=== PATIENT | female | born 1980 | race Caucasian/White ===

== ENCOUNTER 2016-09-20 22:07 | Emergency (ER) | payer OTHER ==
[~2016-09-20] VITALS: Ht 154.9 cm; Wt 57.7 kg
[~2016-09-20 22:07] MED LIST: PRENATAL VITAMIN
[2016-09-20 22:15] VITALS: BP 132/77
[2016-09-20] MEDS ORDERED: MULT1CHW39 PO (22:19)
[2016-09-20] MEDS ORDERED: IBUP200C10 PO (22:19)
== END 2016-09-21 01:45 | disposition left against medical advice (07) ==
LOC: M ED 22:07
DX: Z53.21 Procedure and treatment not carried out due to patient leaving prior to being seen by health care provider (principal); R10.9 Unspecified abdominal pain

== ENCOUNTER 2017-04-11 17:03 | Emergency (ER) | payer OTHER ==
[2017-04-11 18:05] LABS: AMORPHOUS SEDIMENT RFX SMALL (NEGATIVE); KETONE, URINE AUTO RFX NEGATIVE (NEGATIVE); LEUKOCYTE ESTERASE UR AUTO RFX NEGATIVE (NEGATIVE); NITRITE, URINE AUTO RFX NEGATIVE (NEGATIVE); RBC, URINE AUTO RFX TNTC /HPF (0-3); SPECIFIC GRAVITY UR AUTO RFX 1.019 (1.002-1.035); SQUAM EPITHELIAL CELL UR AURFX 0 /HPF (0-6); WBC, URINE AUTO RFX 1 /HPF (0-3)
[2017-04-11 19:05] LABS: BASO % 0.2 % (0.0-1.0); EOS # 0.2 10^3/uL (0.0-0.50); EOS % 1.3 % (0.0-3.0); HEMATOCRIT 38.3 % (36.0-47.0); IMMATURE GRANULOCYTE % 0.4 % (0-3.0); LYMPH # 3.6 10^3/uL (1.5-4.5); LYMPH % 31.5 % (24.0-44.0); MEAN CORPUSCULAR HGB CONC 33.9 g/dl (32.0-36.5); MEAN CORPUSCULAR VOLUME 94.3 fl (80.0-96.0); MONO % 8.3 % (0.0-5.0); NEUTROPHILS # 6.6 10^3/uL (1.8-7.7); NEUTROPHILS % 58.3 % (36.0-66.0); PLATELET COUNT, AUTOMATED 258 10^3/uL (150-450); RED BLOOD COUNT 4.06 10^6/uL (4.00-5.40); RED CELL DISTRIBUTION WIDTH 11.9 % (11.5-14.5); WHITE BLOOD COUNT 11.4 10^3/uL (4.0-10.0)
[2017-04-11 20:01] LABS: ANION GAP 8 MEQ/L (8-16); BLOOD UREA NITROGEN 18 MG/DL (7-18); CALCIUM LEVEL 8.8 MG/DL (8.5-10.1); CARBON DIOXIDE LEVEL 27 MEQ/L (21-32); CHLORIDE LEVEL 105 MEQ/L (98-107); CREATININE FOR GFR 0.69 MG/DL (0.55-1.30); GLOMERULAR FILTRATION RATE > 60.0 (>60); GLUCOSE, FASTING 95 MG/DL (70-100); HCG, SERUM QUANTITATIVE 11277 MIU/ML; POTASSIUM SERUM 4.1 MEQ/L (3.5-5.1); SODIUM LEVEL 140 MEQ/L (136-145)
== END 2017-04-11 21:10 | disposition home or self-care (01) ==
LOC: M ED 17:03
DX: O03.4 Incomplete spontaneous abortion without complication (principal); Z88.2 Allergy status to sulfonamides; Z98.890 Other specified postprocedural states
CPT/HCPCS: 76801

== ENCOUNTER 2017-04-11 22:05 | Emergency (ER) | payer OTHER ==
[2017-04-11 23:44] LABS: BASO % 0.2 % (0.0-1.0); EOS # 0.1 10^3/uL (0.0-0.50); EOS % 0.8 % (0.0-3.0); HEMATOCRIT 35.3 % (36.0-47.0); IMMATURE GRANULOCYTE % 0.3 % (0-3.0); LYMPH # 2.8 10^3/uL (1.5-4.5); LYMPH % 19.4 % (24.0-44.0); MEAN CORPUSCULAR HEMOGLOBIN 32.7 pg (27.0-33.0); MEAN CORPUSCULAR VOLUME 96.2 fl (80.0-96.0); MONO % 7.2 % (0.0-5.0); NEUTROPHILS # 10.3 10^3/uL (1.8-7.7); NEUTROPHILS % 72.1 % (36.0-66.0); PLATELET COUNT, AUTOMATED 215 10^3/uL (150-450); RED BLOOD COUNT 3.67 10^6/uL (4.00-5.40); RED CELL DISTRIBUTION WIDTH 11.9 % (11.5-14.5); WHITE BLOOD COUNT 14.3 10^3/uL (4.0-10.0)
[2017-04-11 23:58] LABS: BEDSIDE GLUCOSE 144 MG/DL (70-105)
[2017-04-12] MEDS: NS 1,000 ML IV (00:15)
[2017-04-12 00:19] LABS: ANION GAP 7 MEQ/L (8-16); BLOOD UREA NITROGEN 16 MG/DL (7-18); CALCIUM LEVEL 8.4 MG/DL (8.5-10.1); CARBON DIOXIDE LEVEL 26 MEQ/L (21-32); CHLORIDE LEVEL 104 MEQ/L (98-107); CREATININE FOR GFR 0.67 MG/DL (0.55-1.30); GLOMERULAR FILTRATION RATE > 60.0 (>60); GLUCOSE, FASTING 152 MG/DL (70-100); POTASSIUM SERUM 3.7 MEQ/L (3.5-5.1); SODIUM LEVEL 137 MEQ/L (136-145)
== END 2017-04-12 01:40 | disposition home or self-care (01) ==
LOC: M ED 04-12 01:40
DX: E86.9 Volume depletion, unspecified (principal); F17.210 Nicotine dependence, cigarettes, uncomplicated; Z88.2 Allergy status to sulfonamides; Z98.890 Other specified postprocedural states
CPT/HCPCS: 80048

== ENCOUNTER → 2017-04-13 | Outpatient (CLI) | payer OTHER ==
[2017-04-13 16:27] LABS: HCG, SERUM QUANTITATIVE 9165 MIU/ML
== END ==
LOC: M LAB 15:25
DX: Z36.89 Encounter for other specified antenatal screening (principal); Z3A.00 Weeks of gestation of pregnancy not specified
CPT/HCPCS: 84702

== ENCOUNTER 2017-04-23 09:18 | Day surgery (SDC) | payer OTHER ==
[2017-04-23] MEDS ORDERED: LIDOCAINE 1% MDV 20ML VIAL SQ (09:30)
[2017-04-23 09:44] LABS: HEMATOCRIT 36.2 % (36.0-47.0); HEMOGLOBIN 11.9 g/dl (12.0-16.0)
[2017-04-23] MEDS: LR 1,000 ML IV (10:15)
[2017-04-23] MEDS: DOXYCYCLINE HYCLATE 100 MG in D5W MINI-BAG PLUS 100 ML IV (10:15)
[2017-04-23] MEDS ORDERED: MIDAZOLAM INJ 2 MG/2 ML VIAL (J2250) As Ordered (10:28)
[2017-04-23] MEDS ORDERED: fentaNYL 100 MCG/2 ML INJECTION (J3010) As Ordered (10:28)
[2017-04-23] MEDS ORDERED: PROPOFOL 200 MG/20 ML VIAL As Ordered (10:29)
[2017-04-23] MEDS ORDERED: KETOROLAC 60 MG/2 ML VIAL (J1885) As Ordered (11:22)
[2017-04-23] MEDS ORDERED: PERCOCET 5MG/325MG TAB PO (11:45)
[2017-04-23] MEDS ORDERED: ONDANSETRON 4MG/2ML VIAL (J2405) IV (11:45)
[2017-04-23] MEDS ORDERED: LR 1,000 ML IV ×2 (11:45)
[2017-04-23] MEDS ORDERED: PHENYLephrine HCL 500 MCG/5 ML (100MCG/ML) SYRINGE (J2370) As Ordered (12:18)
[2017-04-23] MEDS: DOXYCYCLINE HYCLATE 100 MG TAB PO (12:36)
[2017-04-23] MEDS: METHYLERGONOVINE MALEATE 0.2 MG TAB PO (12:36)
[2017-04-23] MEDS: IBUPROFEN 600 MG TAB PO (13:15)
[2017-04-23] MEDS ORDERED: IBUPROFEN 600 MG TAB As Ordered (13:15)
== END 2017-04-23 13:29 | disposition home or self-care (01) ==
LOC: M SDC 09:18
DX: O02.1 Missed abortion (principal); R56.9 Unspecified convulsions; F17.210 Nicotine dependence, cigarettes, uncomplicated; Z88.0 Allergy status to penicillin
CPT/HCPCS: 59820

== ENCOUNTER → 2018-06-13 | Outpatient (CLI) | payer OTHER ==
[~2018-06-13] MED LIST changes: +IBUP200C25 PO; +IBUP80TA PO; +MULT200T7 PO; +PERC5TAB12 PO; +TYLE325T5 PO
--- NOTE | 2018-06-13 15:38 | REP ---
Obstetric sonography: History: Supervision of for anatomy. Findings: Scanning through the gravid uterus demonstrates a viable single intrauterine gestation in a transverse, head to the maternal left lie. motion is observed and heart rate is recorded at 160 beats per minute. A posterior fundal grade 0 placenta is seen without evidence of previa or abruption. Amniotic fluid is subjectively normal. Closed cervical length is 3.6 cm. No extrauterine abnormalities observed. A single artery two-vessel umbilical cord is noted. The lateral ventricles are measuring at the upper range of normal in size, 10.2 mm. No other abnormality is noted. The following anatomic structures are identified and felt to be unremarkable: cranium, cavum, cerebellum and posterior fossa, face and profile, lungs, four-chamber heart with left ventricular outflow tract view, diaphragm, left-sided stomach, abdominal wall cord insertion, kidneys and bladder, upper and lower extremities. The spine and right ventricular cardiac outflow tract views were less than optimally seen due to position. Biometry chart: BPD 4.4 cm = 19 weeks 2 days Head circumference 16.4 cm = 19 weeks 1 day Abdominal circumference 13.7 cm = 19 weeks 1 day Femur length 2.9 cm = 18 weeks 6 days Humeral length 2.7 cm = 18 weeks 5 days HC/AC ratio normal 1.20. Cephalic index normal 0.74. Estimated weight 272 grams, 0 pounds 9 ounces, 72nd percentile for 18 weeks 3 days. Impression: Viable single intrauterine gestation at the 19 weeks 0 days by today's composite criteria. MADDIE by today's sonography November 07, 2018. A single artery two-vessel umbilical cord is noted. Right ventricular cardiac outflow tract and spine less than optimally seen. Lateral ventricles are borderline in size. Electronically Signed by Jorge Craven MD 06/13/2018 04:50 P
== END ==
LOC: M RAD 13:39
PROVIDERS: ATTEND Obstetrics & Gynecology
DX: Z34.82 Encounter for supervision of other normal pregnancy, second trimester (principal)

== ENCOUNTER → 2018-06-20 | Outpatient (CLI) | payer OTHER | LOC: M SMT 13:46 | PROVIDERS: ATTEND Obstetrics & Gynecology | DX: O09.522 Supervision of elderly multigravida, second trimester (principal); Z3A.00 Weeks of gestation of pregnancy not specified ==

== ENCOUNTER → 2018-09-14 | Outpatient (CLI) | payer OTHER ==
--- NOTE | 2018-09-14 18:19 | REP ---
Obstetric sonography: History: growth study. HIGINIO. 31 weeks. Findings: Scanning through the gravid uterus demonstrates a viable single intrauterine gestation in a cephalic lie. motion is observed and heart rate is recorded at 127 beats per minute. A fundal grade 2 placenta is seen without evidence of previa or abruption. Amniotic fluid is subjectively normal. No extrauterine abnormalities observed. There has been appropriate interval growth. No anomaly is noted. A single artery umbilical cord is seen however. A anatomic survey was not performed today. Biometry chart: BPD 7.9 cm 31-week 6 days head circumference 29.9 cm 33 weeks 1 day abdominal circumference 27.6 cm 31 weeks 5 days femur length 5.6 centimeters 29 weeks 4 days humeral length 5.4 cm 31 weeks 4 days HC/AC ratio normal 1.08, cephalic index normal 0.73, estimated weight 1721 grams, 3 pounds 12 ounces, 33rd percentile for 31 weeks 5 days HIGINIO normal 18.5 cm. SD ratio normal 2.56. Impression: Viable single intrauterine gestation at 31 weeks 4 days by today's composite criteria. Expected gestational age estimate based on prior sonography is 32 weeks 2 days. There has been appropriate interval growth. MADDIE by prior sonography November 07, 2018. Single artery umbilical cord. Electronically Signed by Jorge Craven MD 09/14/2018 06:49 P
== END ==
LOC: M RAD 13:39
PROVIDERS: ATTEND Obstetrics & Gynecology
DX: Z36.89 Encounter for other specified antenatal screening (principal); Z3A.31 31 weeks gestation of pregnancy

== ENCOUNTER → 2018-10-13 | Outpatient (CLI) | payer OTHER ==
--- NOTE | 2018-10-13 15:18 | REP ---
OBSTETRIC SONOGRAPHY: HISTORY: Supervision of . growth study. FINDINGS: Scanning through the gravid uterus demonstrates a viable single intrauterine gestation in a cephalic lie. motion is observed and heart rate is recorded at 133 beats per minute. Placenta is fundal grade 3 without evidence of previa or abruption. Amniotic fluid is subjectively normal. Closed cervical length is 4.0 cm. No extrauterine abnormalities observed. There has been appropriate interval growth. A single artery umbilical cord is seen. No abnormality is observed. The following anatomic structures are identified today and are again felt to be unremarkable: cranium, cavum, lungs, diaphragm, left-sided stomach, kidneys and bladder, spine. Biometry Chart: BPD 9.0 cm = 36 weeks 4 days HL 31.9 cm = 36 weeks 0 days AC 32.2 cm = 36 weeks 1 day FL 6.3 cm = 32 weeks 4 days HL 5.8 cm = 33 weeks 6 days HC/AC ratio normal 0.99 Cephalic index normal 0.81. Estimated weight 2625 grams, 5 pounds 12 ounces, 39th percentile for 35 weeks 6 days. HIGINIO normal 13.6 cm. S/D ratio in the umbilical cord artery by Doppler normal 2.31. IMPRESSION: Viable single intrauterine gestation at 35 weeks 0 days by today's composite sonographic criteria. Expected gestational age estimate based on prior sonography 36 weeks 3 days. MADDIE by prior sonography 11/07/2018. There is appropriate interval growth. Electronically Signed by Jorge Craven MD 10/13/2018 05:36 P
== END ==
LOC: M RAD 11:08
PROVIDERS: ATTEND Obstetrics & Gynecology
DX: O36.8920 Maternal care for other specified fetal problems, second trimester, not applicable or unspecified (principal)

== ENCOUNTER → 2018-10-21 | Outpatient (REF) | payer OTHER | LOC: M LAB REF 13:01 | PROVIDERS: ATTEND Advanced Practice Midwife | DX: O09.523 Supervision of elderly multigravida, third trimester (principal) ==

== ENCOUNTER 2018-11-06 06:36 | Inpatient (IN) | payer OTHER ==
[2018-11-06] VITALS (9 sets, daily range): BP systolic 107–123; BP diastolic 59–81
[~2018-11-06] VITALS: Ht 154.9 cm; Wt 69.8 kg
[~2018-11-06 06:36] MED LIST changes: +MULTTAB20 PO; +ZOLO25TA PO
[2018-11-06 09:03] LABS: HEMATOCRIT 36.5 % (36.0-47.0); MEAN CORPUSCULAR HEMOGLOBIN 32.3 pg (27.0-33.0); MEAN CORPUSCULAR HGB CONC 32.9 g/dl (32.0-36.5); MEAN CORPUSCULAR VOLUME 98.4 fl (80.0-96.0); PLATELET COUNT, AUTOMATED 247 10^3/uL (150-450); RED BLOOD COUNT 3.71 10^6/uL (4.00-5.40); WHITE BLOOD COUNT 17.4 10^3/uL (4.0-10.0)
[2018-11-06] MEDS ORDERED: LACTATED RINGER'S 1000 ML IV STA (09:12)
[2018-11-06] MEDS ORDERED: AZITHROMYCIN INJ 500MG VIAL (J0456) As Ordered ONE (12:00)
[2018-11-06] MEDS ORDERED: BICITRA 30ML SOLN UDC As Ordered ONE (12:01)
[2018-11-06] MEDS ORDERED: ceFAZolin 2 GM/D5W 50 ML IV BAG (J0690 PER 500MG) As Ordered ONE (12:01)
[2018-11-06] MEDS ORDERED: AZITHROMYCIN INJ 500 MG, VIAL MATE ADAPTER 1 EACH in D5W 250 ML IV ONE (12:15)
[2018-11-06] MEDS ORDERED: BICITRA 30ML SOLN UDC PO ONE (12:15)
[2018-11-06] MEDS ORDERED: OXYTOCIN INJ 10 UNITS/ML VIAL (J2590) As Ordered ONE (12:53)
[2018-11-06] MEDS ORDERED: PHENYLephrine HCL 500 MCG/5 ML (100MCG/ML) SYRINGE (J2370) As Ordered ONE (12:53)
[2018-11-06] MEDS ORDERED: dexameTHASONE 4 MG/ML 1ML VIAL (J1100) As Ordered ONE (12:53)
[2018-11-06] MEDS ORDERED: KETOROLAC 60 MG/2 ML VIAL (J1885) As Ordered ONE (12:53)
[2018-11-06] MEDS ORDERED: ONDANSETRON 4MG/2ML VIAL (J2405) As Ordered ONE (12:53)
[2018-11-06] MEDS ORDERED: MORPHINE PRES-FREE INJ 10 MG/10 ML VIAL (J2274) As Ordered ONE (12:53)
--- NOTE | 2018-11-06 13:46 | HPE ---
DATE OF ADMISSION: 11/06/2018 REASON FOR ADMISSION: Labor. HISTORY OF PRESENT ILLNESS: This patient is a 38-year-old, 5, para 2 who presents at 39 weeks 2 days estimated gestational age by first trimester ultrasound with complaints of contractions. Her course has been remarkable for advanced maternal age, as well as ventriculomegaly and single umbilical artery. She has had serial growth ultrasounds, as well as consultation at the center. Her course was initiated in the first trimester and has been appropriate throughout. She has expressed satisfied parity and desires permanent sterilization throughout her . PAST MEDICAL HISTORY: History of anxiety. PAST SURGICAL HISTORY: She has had two sections and two dilatation and curettage. PAST OBSTETRICAL HISTORY: She is a 5, para 2. She has had two term sections. MEDICATIONS: - Zoloft - vitamins ALLERGIES: BACTRIM and SULFA. SOCIAL HISTORY: She denies any alcohol, tobacco or drug use during the . PHYSICAL EXAMINATION: VITAL SIGNS: Stable. She is afebrile. heart rate is 140s to 150s, moderate variability with contractions noted on tocometer. GENERAL APPEARANCE: Well appearing. No distress. LUNGS: Clear to auscultation bilaterally. CARDIOVASCULAR: Heart regular rate and rhythm. ABDOMEN: Gravid, nontender. CERVICAL EXAM: 1 cm dilated. LABORATORIES: laboratories: Blood type is AB positive, antibody screen is negative. Rubella is equivocal. RPR is nonreactive. Hepatitis surface antigen is negative. HIV is negative. Hepatitis C nonreactive. Chlamydia and gonorrhea screens are negative. She had a Panorama that showed low risk male. Group B streptococcus (GBS) is negative. ASSESSMENT: This patient is a 38-year-old, 5, para 2 at 39 weeks 2 days estimated gestational age here in labor. Reassuring status. History of two prior sections. Satisfied parity with undesired fertility. PLAN: Admit to labor and delivery. CBC, RPR, type and screen. The patient was thoroughly counseled in regards to mode of delivery. She has been counseled on trial of labor after section versus repeat section with risks and benefits of each. She has also been offered alternative measures of contraception, desires for a repeat section with bilateral tubal ligation. Plan is to proceed.
[2018-11-06] MEDS ORDERED: PERCOCET 5MG/325MG TAB PO PRN ×2 (14:15→14:30)
[2018-11-06] MEDS ORDERED: MEASLES,MUMPS,RUBELLA VACCINE INJ (MMR-II) (90707) SC SCH (14:15)
[2018-11-06] MEDS ORDERED: ONDANSETRON 4MG/2ML VIAL (J2405) IV PRN ×2 (14:15→14:30)
[2018-11-06] MEDS ORDERED: RHOGAM 300 MCG (1500 IU) INJ (J2790) IM SCH (14:15)
[2018-11-06] MEDS ORDERED: MOM 30ML SUSPENSION UDC PO PRN (14:15)
[2018-11-06] MEDS ORDERED: OXYTOCIN DRIP 30 UNITS in APPROPRIATE DILUENT 1 EA IV SCH (14:15)
[2018-11-06] MEDS ORDERED: LR 1,000 ML IV SCH ×2 (14:30→15:30)
[2018-11-06] MEDS ORDERED: METOCLOPRAMIDE INJ 10MG/2ML VIAL (J2765) IV PRN (14:30)
[2018-11-06] MEDS ORDERED: fentaNYL 100 MCG/2 ML INJECTION (J3010) IV PRN (14:30)
[2018-11-06] MEDS ORDERED: MEPERIDINE INJ 25 MG/ML VIAL (J2175) IV PRN (14:30)
--- NOTE | 2018-11-06 14:53 | RO ---
DATE OF PROCEDURE: 11/06/2018 PREOPERATIVE DIAGNOSES: 1. Labor. 2. History of two prior sections for repeat. 3. Satisfied parity with undesired fertility. POSTPROCEDURE DIAGNOSES: 1. Labor. 2. History of two prior sections for repeat. 3. Satisfied parity with undesired fertility. PROCEDURES PERFORMED: 1. Repeat section with [place] bilateral tubal ligation. SURGEON: Soo Hatch MD STUDENT ASSISTANT: Prabha Montes DO ANESTHESIA: Spinal. ESTIMATED BLOOD LOSS: 500 mL. INTRAVENOUS FLUIDS: 1 liters of lactated Ringer solution. URINE OUTPUT: 100 mL. OPERATIVE FINDINGS: Live born male infant, scores 8/9, weight was 3200 grams or 7 pounds 1 ounce. PREOPERATIVE ANTIBIOTICS: 2 grams of Ancef, 500 azithromycin. SPECIMENS: Bilateral segments of fallopian tubes. DESCRIPTION OF OPERATION: After informed consent was obtained and written consent was reviewed, the patient was brought to operating room where spinal anesthesia was placed. She was then placed in supine position with a left lateral tilt. Talley catheter was placed and set to gravity. She was then prepped and draped in normal sterile fashion. Time out in the operating room was performed identifying the patient, procedure to be performed. as well as drug allergies. Anesthesia was tested deemed to be adequate. A Pfannenstiel skin incision was then made along the previous skin incision and this was carried down to the underlying rectus fascia. The fascia was scored and incision was extended bilaterally. The fascia was then dissected off the underlying rectus muscles both superiorly and inferiorly. Rectus muscles were in the midline. Peritoneum was entered sharply. Vesicouterine peritoneum was then tented and excised to create a bladder flap. Bladder blade was placed to retract back the bladder. Curvilinear incision was then made in the lower uterine segment. head was brought to the level of the incision atraumatically and was delivered with the aid of a Kiwi vacuum. Suction was released and shoulders were then delivered, along with corpus. Cord was clamped times two and was cut. The was taken over to the warmer with a good cry. Placenta was then delivered grossly intact. The uterus was exteriorized and cleared of all clots and debris. The uterine incision was then closed in two layers using 0 Vicryl, first in a running locking fashion, followed by second layer for imbrication in a running nonlocking fashion. Attention was then turned to the patient's fallopian tubes where bilateral [place] tubal ligation was performed. The right fallopian tube was placed on traction and a window was created in the mesosalpinx. This area was doubly ligated with chromic suture and was excised with good hemostasis noted. In a similar fashion, the left fallopian tube was placed in traction, window was created in the mesosalpinx and this area was doubly ligated using 0 chromic and was excised with good hemostasis noted. The uterus was then returned to the patient's abdomen and surgical sites were inspected and noted to be hemostatic. The anterior peritoneum was then reapproximated with 3-0 Vicryl. The fascia was then closed with 0 Vicryl in a running nonlocking fashion. Subcutaneous tissue was then irrigated and suctioned. Subcutaneous tissue was then closed 3-0 Vicryl. Several subdermal stitches were placed using 3-0 Vicryl and skin was closed with four Monocryl in subcuticular fashion. Incision was then cleaned and dried and was dressed. The patient was then taken to recovery room in stable condition. Counts were correct. Dr. Montes, my rn surgical, played an essential role during surgery. She assisted with tissue identification and retraction, delivery of the , as well as wound closure. YESENIA
[2018-11-06] MEDS ORDERED: OXYTOCIN 30 UNITS IN 0.9% NaCl 500ML IV BAG (J2590) As Ordered ONE (15:00)
[2018-11-06] MEDS ORDERED: PERCOCET PO (15:13)
[2018-11-06] MEDS: PERCOCET 5MG/325MG TAB PO PRN (15:57)
[2018-11-06] MEDS: DOCUSATE SODIUM 100 MG CAP PO SCH (20:30)
[2018-11-06] MEDS: KETOROLAC 30 MG/ML VIAL (J1885) IV SCH (20:31)
[2018-11-06] MEDS: SERTRALINE HCL 25 MG TABLET PO SCH (20:45)
[2018-11-07 02:00] VITALS: BP 111/59
[2018-11-07] MEDS: KETOROLAC 30 MG/ML VIAL (J1885) IV SCH ×2 (02:32→07:41)
[2018-11-07 06:00] VITALS: BP 100/52
[2018-11-07 07:07] LABS: HEMATOCRIT 27.8 % (36.0-47.0); MEAN CORPUSCULAR HEMOGLOBIN 32.9 pg (27.0-33.0); MEAN CORPUSCULAR HGB CONC 33.1 g/dl (32.0-36.5); MEAN CORPUSCULAR VOLUME 99.3 fl (80.0-96.0); PLATELET COUNT, AUTOMATED 212 10^3/uL (150-450); WHITE BLOOD COUNT 17.1 10^3/uL (4.0-10.0)
[2018-11-07 07:09] LABS: HEMOGLOBIN 9.2 g/dl (12.0-15.5)
[2018-11-07] MEDS: DOCUSATE SODIUM 100 MG CAP PO SCH ×2 (07:40→20:12)
[2018-11-07] MEDS: PRENATAL VITAMINS CHEWABLE TABLET PO SCH (07:41)
[2018-11-07 10:05] VITALS: BP 102/52
[2018-11-07 13:56] VITALS: BP 101/61
[2018-11-07] MEDS: IBUPROFEN 800 MG TAB PO SCH ×2 (16:21→23:57)
[2018-11-07] MEDS: PERCOCET 5MG/325MG TAB PO PRN ×2 (17:26→23:57)
[2018-11-07 17:44] VITALS: BP 111/71
[2018-11-07] MEDS: SERTRALINE HCL 25 MG TABLET PO SCH (20:12)
[2018-11-07 22:00] VITALS: BP 106/59
[2018-11-08 02:00] VITALS: BP 108/55
[2018-11-08 06:00] VITALS: BP 103/60
[2018-11-08] MEDS: DOCUSATE SODIUM 100 MG CAP PO SCH (07:33)
[2018-11-08] MEDS: PRENATAL VITAMINS CHEWABLE TABLET PO SCH (07:33)
[2018-11-08] MEDS: IBUPROFEN 800 MG TAB PO SCH (07:33)
--- NOTE | 2018-11-08 08:11 | DSES ---
DATE OF ADMISSION: 11/06/2018 DATE OF DISCHARGE: 11/08/2018 DISCHARGE DIAGNOSIS: Repeat section with bilateral tubal ligation for history of two prior sections with satisfied parity and undesired fertility. PROCEDURES PERFORMED WHILE IN HOSPITAL: 1. Spinal anesthesia. 2. section. 3. [place] bilateral tubal ligation. DISCHARGE CONDITION: Stable. HISTORY AND HOSPITAL COURSE: This patient is a 38-year-old. 4, para 2, who presented in active labor at 39+ weeks. She had expressed her desire for repeat section as well as satisfied parity and desired permanent sterilization. She underwent an uncomplicated section with bilateral [place] tubal ligation productive of a live born male infant. Estimated blood loss was 500 mL. This patient well postoperatively. By postoperative day #2, had met all discharge criteria and was discharged home in stable condition. PHYSICAL EXAMINATION ON DATE OF DISCHARGE: Vital signs were stable. She is afebrile. General Appearance: Well appearing, in no acute distress. Her abdomen was soft and appropriately tender. Fundus firm below umbilicus. Incision was dressed. Extremities: Negative for calf tenderness. DISCHARGE MEDICATIONS: Ibuprofen and Percocet. DISCHARGE INSTRUCTIONS: 1. She was instructed to remain on pelvic rest for 6 weeks. 2. To remove her dressing in 5-7 days. 3. To report severe pain, heavy vaginal bleeding, fever or incisional issues. edited: 11/09/2018 [id number] [id number]
== END 2018-11-08 11:35 | disposition home or self-care (01) | DRG 540 ==
LOC: M LDO 06:36 → M LDI 08:04 → M OBS 15:20
PROVIDERS: ADMIT Obstetrics & Gynecology; ATTEND Obstetrics & Gynecology
PROC: 0UB70ZZ Excision of Bilateral Fallopian Tubes, Open Approach (ICD-10-PCS; 2018-11-06)
PROC: 10D00Z1 Extraction of Products of Conception, Low, Open Approach (ICD-10-PCS; principal; 2018-11-06 13:09)
DX: O34.211 Maternal care for low transverse scar from previous cesarean delivery (principal); O75.82 Onset (spontaneous) of labor after 37 completed weeks of gestation but before 39 completed weeks gestation, with delivery by (planned) cesarean section; Z3A.39 39 weeks gestation of pregnancy; Z37.0 Single live birth; Z30.2 Encounter for sterilization

== ENCOUNTER → 2019-01-29 | Outpatient (CLI) | payer OTHER ==
[~2019-01-29] MED LIST changes: +PERCOCET PO
--- NOTE | 2019-01-29 12:58 | REP ---
Clinical: Trauma. Fall. Technique: AP, lateral, bilateral oblique views of the left hand. Findings: There is an oblique minimally displaced fracture of the fifth metacarpal bone. Remainder examination appears normal. Impression: Oblique fracture of the fifth metacarpal bone. Electronically Signed by Yusuf Lugo MD 01/29/2019 12:50 P
== END ==
LOC: M RAD 12:35
PROVIDERS: ATTEND Physician Assistant
DX: S62.317A Displaced fracture of base of fifth metacarpal bone, left hand, initial encounter for closed fracture (principal); X58.XXXA Exposure to other specified factors, initial encounter

== ENCOUNTER 2022-06-06 22:52 | Emergency (ER) | payer OTHER ==
[~2022-06-06] VITALS: Ht 154.9 cm; Wt 48.8 kg
[2022-06-07] MEDS ORDERED: CLINDAMYCIN 150MG CAPSULE PO ONE (01:35)
[2022-06-07] MEDS ORDERED: CLEO300C2 PO (01:45)
[2022-06-07 02:13] VITALS: BP 125/65
== END 2022-06-07 02:15 | disposition home or self-care (01) ==
LOC: M ED 22:52
DX: H00.024 Hordeolum internum left upper eyelid (principal); F32.A Depression, unspecified; F41.9 Anxiety disorder, unspecified; Z88.2 Allergy status to sulfonamides; Z88.8 Allergy status to other drugs, medicaments and biological substances

== ENCOUNTER → 2022-11-17 | Outpatient (CLI) | payer OTHER ==
[~2022-11-17] MED LIST changes: +CLEO300C2 PO
== END ==
LOC: M WHC 08:19
PROVIDERS: ATTEND Physician Assistant
DX: N64.4 Mastodynia (principal)

== ENCOUNTER 2023-02-14 13:45 | Emergency (ER) | payer OTHER ==
[~2023-02-14] VITALS: Ht 154.9 cm; Wt 46.2 kg
[2023-02-14] MEDS ORDERED: IBUP200C29 PO (14:23)
[2023-02-14] MEDS ORDERED: BUPR150T12 (14:23)
[2023-02-14] MEDS ORDERED: ACET-683 PO (14:23)
[2023-02-14] MEDS ORDERED: ISOVUE-370 76% 100ML VIAL As Ordered ONE (16:32)
[2023-02-14 18:00] VITALS: BP 128/76; TEMP 98; O2SAT 96
[2023-02-14] MEDS ORDERED: ELIQ5TAB PO (18:22)
[2023-02-14] MEDS ORDERED: APIXABAN 5 MG TAB (ELIQUIS) PO ONE (18:25)
== END 2023-02-14 18:54 | disposition home or self-care (01) ==
LOC: M ED 13:45
DX: K76.9 Liver disease, unspecified (principal); I70.202 Unspecified atherosclerosis of native arteries of extremities, left leg; F32.A Depression, unspecified; F41.9 Anxiety disorder, unspecified; F17.200 Nicotine dependence, unspecified, uncomplicated; Z88.2 Allergy status to sulfonamides
CPT/HCPCS: 73630; 73706; 80047; 99284; Q9967

== ENCOUNTER → 2023-03-09 | Outpatient (CLI) | payer OTHER ==
[~2023-03-09] MED LIST changes: +ACET-683 PO; +BUPR150T12; +ELIQ5TAB PO; +IBUP200C29 PO
== END ==
LOC: M RAD 08:59
PROVIDERS: ATTEND Physician Assistant
DX: S85.132A Unspecified injury of anterior tibial artery, left leg, initial encounter (principal); W18.30XA Fall on same level, unspecified, initial encounter; Y92.009 Unspecified place in unspecified non-institutional (private) residence as the place of occurrence of the external cause

== ENCOUNTER → 2023-12-22 | Outpatient (CLI) | payer OTHER ==
[~2023-12-22] MED LIST changes: -MULT200T7 PO; +MULT200T9 PO
== END ==
LOC: M RAD 09:28
PROVIDERS: ATTEND Physician Assistant
DX: K76.9 Liver disease, unspecified (principal)